=== PATIENT | male | born 1975 | race Caucasian/White ===

== ENCOUNTER 2022-12-23 20:48 | Emergency (ER) | payer OTHER ==
[~2022-12-23 20:48] MED LIST: Iopamidol 370 76% 100 ML VIAL ONE
[2022-12-23] MEDS ORDERED: Sodium Chloride 0.9% 1,000 ML ONE (21:06)
[2022-12-23] MEDS ORDERED: Ketorolac Tromethamine 30 MG/ML VIAL ONE (21:06)
[2022-12-23 21:37] LABS: White Blood Cell (WBC) Count 15.4 10x3/uL (4.8-10.8)
[2022-12-23 21:38] LABS: #Basophils 0.1 thou/uL (0.0-0.2); #Lymphocytes 1.8 thou/uL (1.20-3.40); #Monocytes 0.9 thou/uL (0.11-0.59); #Neutrophils 12.6 thou/uL (1.40-6.50); %Basophils 0.6 % (0.0-1.0); %Eosinophils 0.2 % (0.0-10.0); %Lymphocytes 11.4 % (21.0-51.0); %Neutrophils 81.8 % (42.0-75.0); Hematocrit 45.2 % (42.0-52.0); Hemoglobin 15.1 g/dL (14.0-18.0); Mean Corpuscular HGB CONC 33.4 g/dL (32.0-36.0); Mean Corpuscular Hemoglobin 30.1 pg (27.0-31.0); Mean Corpuscular Volume 90.1 fl (78.0-98.0); Mean Platelet Volume 8.1 fL (7.4-10.4); Platelet Count 305 10x3/uL (130-400); RBC Distribution Width 11.4 % (11.5-14.5); Red Blood Cell (RBC) Count 5.01 mill/uL (4.70-6.10)
[2022-12-23 21:53] LABS: Troponin I Less than 0.010 ng/mL (< 0.028)
[2022-12-23 21:54] LABS: BUN (Urea Nitrogen) 12 mg/dL (8.9-20.6); Bilirubin, Total 0.8 mg/dL (0.2-1.2); Calc. Creatinine Clearance 0 mL/min (70-130); Calcium 8.7 mg/dL (7.6-10.4); Carbon Dioxide 19 mmol/L (22-29); Chloride 102 mmol/L (98-107); Estimated GFR 101; Glucose 103 mg/dL (70-105); Potassium 3.9 mmol/L (3.5-5.1); Sodium 135 mmol/L (136-145)
[2022-12-23 21:55] LABS: ALT (SGPT) 13 U/L (8-55); AST (SGOT) 16 U/L (5-34); Albumin 4.3 g/dL (3.5-5.0); Alkaline Phosphatase 57 U/L (40-110); Globulin 2.9 g/dL (2.4-3.5); Lipase 35 U/L (8-78); Magnesium 1.7 mg/dL (1.6-2.6); Protein, Total 7.2 g/dL (6.0-8.3)
[2022-12-23 21:57] LABS: Anion Gap 18 mmol/L (10-20)
[2022-12-23 22:08] LABS: Bilirubin Negative (Negative); Blood, Urine Negative (Negative); CAUTI Indications for Culture Pelvic or flank pain; Clarity Clear (Clear); Glucose, Urine (Dipstick) Negative (Negative); Ketone, Urine Negative (Negative); Leukocyte Negative (Negative); Nitrite Negative (Negative); Protein, Urine (Dipstick) Negative (Neg-Trace); RBC/HPF 0-3 HPF (0-3); Urobilinogen 0.2 mg/dL (Less than 2); WBC/HPF None Seen HPF (0-3)
[2022-12-23 22:09] LABS: Squamous Epithelial 0-3 HPF (0-3); Urine Culture Reflex No No
[2022-12-23 22:40] LABS: Acetaminophen Less than 10 mcg/mL (10.0-30.0); Alcohol Less than 10.0 mg/dL (Less than 10); Salicylate Less than 8.0 mg/dL (15.0-30.0)
== END 2022-12-23 22:25 ==
LOC: MADERS 20:48 → EEVIPCON 20:48 → MADERS 22:25
DX: R10.31 Right lower quadrant pain (principal); D72.829 Elevated white blood cell count, unspecified; E78.00 Pure hypercholesterolemia, unspecified; I10 Essential (primary) hypertension; Z79.899 Other long term (current) drug therapy
CPT/HCPCS: 36415; 71045; 74177; 80053; 80307; 81001; 83690; 83735; 84484; 85025; 93005; 96361; 96374; J1885; J7050; Q9967